=== PATIENT | male | born 1945 | race Caucasian/White ===

== ENCOUNTER → 2023-05-08 15:26 | Outpatient (REF) | payer MEDICARE, SELFPAY ==
[2023-05-10 22:45] LABS: PSA Total 3.5 ng/mL (0.0-4.0)
== END ==
LOC: REG 15:26
PROVIDERS: ATTENDING PHYSICIAN Surgery; FAMILY PHYSICIAN Internal Medicine
DX: R97.20 Elevated prostate specific antigen [PSA] (principal)
CPT/HCPCS: 36415; 84153; 84154

== ENCOUNTER → 2023-06-05 10:12 | Outpatient (REF) | payer MEDICARE, SELFPAY | LOC: RAD 10:12 | PROVIDERS: ATTENDING PHYSICIAN Otolaryngology; FAMILY PHYSICIAN Nurse Practitioner | DX: K21.9 Gastro-esophageal reflux disease without esophagitis (principal); R07.0 Pain in throat | CPT/HCPCS: 74221 ==

== ENCOUNTER 2023-10-24 13:14 | Inpatient (IN) | payer MEDICARE, SELFPAY ==
[2023-10-23] VITALS (7 sets, daily range): BP systolic 115–163; BP diastolic 60–83; BMI 30.5
[2023-10-23 16:17] LABS: % Basophils 0.3 % (0-2); % Eosinophils 0.2 % (0-6); % Immature Granulocytes 0.3 % (0-0.5); % Lymphocytes 7.7 % (20.5-51.1); % Monocytes 6.2 % (1.7-9.3); % Neutrophils 85.3 % (42.2-75.2); Absolute Monocytes 0.8 10^3/uL (0.1-0.6); Absolute Neutrophils 11.3 10^3/uL (1.4-6.5); Hematocrit 45.7 % (39.0-52.0); Hemoglobin 15.9 g/dL (13.0-18.0); Mean Corp Hgb Conc. 34.8 g/dL (33.0-37.0); Mean Corpuscular Volume 89.1 fL (80.0-94.0); Mean Platelet Volume 9.1 fL (7.4-10.4); Nucleated Red Blood Cells % 0 % (-); Platelet Count 311 10^3/uL (130-400); Red Blood Cell Count 5.13 10^6/uL (4.70-6.10); Red Cell Dist. Width 13.7 % (11.5-14.5); White Blood Cell Count 13.2 10^3/uL (4.8-10.8)
--- NOTE | 2023-10-23 16:30 | ED.GENMED ---
History of Present Illness
General
Chief Complaint: Abdominal Pain
Source: patient
Exam Limitations: none
Time Seen by Provider: 10/23/23 15:54
Nursing documentation reviewed up to this point in time: agreed with
History of Present Illness
History of Present Illness:
78 yo male w h/o GERD, takes Omeprazole, BPH with chronic slow stream, presents with RUQ pain, went to due to not feeling well, had neg Covid test, sent here for the pain. Pain started this a.m. RUQ and sometimes radiates across upper abdomen.
Denies fever or chills. Denies nausea or vomiting. Denies diarrhea or constipation. Had a normal bowel movement yesterday. He drinks alcohol occasionally.
Past History
Past History
ED Past Medical History: GERD and Other (BPH)
ED Past Surgical History: Orthopedic and Other (hernia repair, R arm melanoma removed)
Social History
Tobacco: Non-smoker
Alcohol: Occasional
Personal: Single
Living: alone
Employment: Employed
Review of Systems
Review of Systems
Allergies reviewed?: Yes
All Other Systems: ROS reviewed and negative except as documented in HPI and ROS
Constitutional: Denies fever
Respiratory: Denies trouble breathing
Cardiac: Denies chest pain
ABD/GI: Reports abdominal pain and nausea; Denies vomiting, diarrhea, constipated or anorexia
: Reports difficulty voiding (takes a while to void, this is chronic with his BPH, followed by urology); Denies dysuria or frequency
Musculoskeletal: Reports no symptoms
Skin: Reports no symptoms
Neurological: Reports no symptoms
Phy Exam
Physical Exam
Physical Exam:
GENERAL: No acute distress. A&Ox3.
CONSTITUTIONAL: Afebrile.
EYES: clear, conjunctivae normal
ENMT: moist mucus membranes, Pharynx nl
RESPIRATORY: Regular respirations, nonlabored, lungs clear.
CARDIOVASCULAR: Regular rate and rhythm, no murmurs, no rubs.
GI: Soft, tender RUQ, normal BS
MUSCULOSKELETAL: Moves with ease. Well perfused.
SKIN: Warm, dry, pink
PSYCH: Normal mood and affect. Well kept, interactive and appropriate
NEUROLOGIC: Awake, alert and oriented. No focal neurological deficits
Course
Orders/Labs/Results
Orders:
Orders
10/23/23 15:25
ECG [Electrocardiogram (*1)] Urgent
Reason for Study: Abdominal Pain
EKG- Treatment ONCE
10/23/23 16:03
Complete Blood Count/With Diff Urgent
Comprehensive Metabolic Panel Urgent
Lipase Urgent
Troponin I Urgent
10/23/23 16:30
Iohexol [Omnipaque] See Protocol PO NOW STA
10/23/23 16:35
US Abdomen Complete/Upper Urgent
Comment:
Reason For Exam: RUQ pain
10/23/23 16:53
0.9% Sodium Chloride 1000 ml [Nss] 1,000 ml IV BOLUS
10/23/23 16:54
Ketorolac [Toradol] 15 mg IV NOW STA
10/23/23 19:00
Piperacillin/Tazo 3.375 Gram [Zosyn] 3.375 gram in 50 ml IV NOW
10/23/23 19:32
Admit/Transfer Patient As Directed
Co-Sign Provider:
Level of Care: Observation services
Assign to:: Medical/Surgical
Physician / Group: dr dubois
Diagnosis: acute cholecystitis
PRN Pain Medication Management As Directed
May give lesser potent ordered pain med per pt: Yes
preference::
Protocol:: Medication orders for pain may be administered in a
manner that supports deferring to patient preference
when the pt is:
-Requesting an ordered lesser potent pain medication.
Least to most potent pain medications are defined as:
acetaminophen < NSAID < tramadol < opioids (morphine,
oxycodone, hydromorphone).
- Requesting a lesser dose of the same medication IF
ORDERED.
- Requesting a less intrusive route of administration
if both routes are prescribed by the provider (PO <
IV).
10/23/23 19:33
Code Status As Directed
Resuscitation Status: Full Code
10/23/23 20:29
Acetaminophen [Tylenol] 650 mg PO Q4HPRN PRN
HYDROmorphone [Dilaudid] 0.5 mg IV Q2HPRN PRN
Ketorolac [Toradol] 15 mg IV Q6HPRN PRN
Ondansetron Injectable [Zofran] 4 mg IV Q6HPRN PRN
10/23/23 20:29
Activity As Directed
Activity Level: Out of Bed-Early Mobility
Anti-embolism (TRISHA) Hose As Directed
Type: Thigh high
Intake/ Output As Directed
Frequency: Per unit guidelines
Pneumatic Compression Sleeves As Directed
Type: Thigh high
Vital Signs As Directed
Frequency: Per unit guidelines
Rx Incentive Spirometry [RESP] Routine
Frequency: q1h while awake
# of times per hour: 10
DX Deep Vein Thrombosis Video Routine
10/24/23 00:00
Normosol (Mult Electrolytes) [Normosol-R] 1,000 ml IV 80 mls/hr
10/24/23 01:00
Piperacillin/Tazo 3.375 Gram [Zosyn] 3.375 gram in 50 ml IV Q6H
10/24/23 Breakfast
NPO
Allow oral meds: Yes
Allow clear liquids: No
NPO with Ice Chips: No
Abnormal Lab Results
10/23/23
16:03
WBC 13.2 H 10^3/uL
(4.8-10.8)
Absolute Neuts (auto) 11.3 H 10^3/uL
(1.4-6.5)
Absolute Lymphs (auto) 1.0 L 10^3/uL
(1.2-3.4)
Absolute Monos (auto) 0.8 H 10^3/uL
(0.1-0.6)
Neutrophils % 85.3 H %
(42.2-75.2)
Lymphocytes % 7.7 L %
(20.5-51.1)
BUN 24 H mg/dl
(9-20)
Glucose 101 H mg/dl
(70-99)
10/23/23 16:03
10/23/23 16:03
Vital Signs
Initial and Last Documented VS:
Initial Vital Signs
Temp Pulse Resp BP Pulse Ox
98.3 F 76 20 115/82 99
10/23/23 15:22 10/23/23 15:22 10/23/23 15:22 10/23/23 15:22 10/23/23 15:22
Last Documented Vital Signs
Temp Pulse Resp BP Pulse Ox
98.3 F 74 16 140/60 99
10/23/23 15:22 10/23/23 18:44 10/23/23 18:44 10/23/23 18:44 10/23/23 18:44
MDM/Problems Addressed
Differential Diagnosis Includes:
cholecystitis, biliary colic, pancreati
MDM/Problems Addressed:
78 yo male w h/o GERD, takes Omeprazole, BPH with chronic slow stream, presents with RUQ pain, went to due to not feeling well, had neg Covid test, sent here for the pain. Pain started this a.m. RUQ, nausea and sometimes radiates across upper
abdomen. Denies fever or chills. Denies nausea or vomiting. Denies diarrhea or constipation. Had a normal bowel movement yesterday. He drinks alcohol occasionally.
EKG: NSR, sinus arrhythmia, occasional PVCs
CBC: WBC 13.3
CMP: No clinically significant abnormality EKG: Sinus rhythm with sinus arrhythmia occasional PVC.
Lipase normal
Troponin normal
6:30 PM
Ultrasound upper abdomen radiology report read:IMPRESSION:
1. Cholelithiasis/sludge, gallbladder distention, gallbladder wall thickening, and suspected trace pericholecystic fluid. Findings raise suspicion for acute cholecystitis in the appropriate clinical setting.
2. No bile duct dilatation.
3. 4 mm gallbladder polyp for which no further imaging follow-up is required.
Consulted Dr. Dubois General surgery.
He will admit to his service
House Provider notified of admission.
In to re evaluate, pt remains comfortable
*Critical Care Note
Total Time (30-74mins, 75-104mins- exclusive of procedures): Not Applicable
ED Attending Note
-
Portions of this chart may have been created with voice recognition software.� Occasional wrong word or��sound alike� substitutions may have occurred due to the inherent limitations of voice recognition software.
Discharge Plan
Departure
Patient Disposition: Admit
Date of Disposition: 10/23/23
Time of Disposition: 19:00
Admit to: Med/Surg
Presentation/result/management discussed w/ accepting /: Silvino
Condition: Fair
Discharge Problem:
Acute cholecystitis
Interventions
Interventions:
*Risk Screen - Suicide Last Done: 10/23/23 15:22
*General Assessment Last Done: 10/23/23 15:22
*Neglect/Abuse Screening Last Done: 10/23/23 15:22
ED- Fall Risk Assessment Last Done: 10/23/23 20:22
*ED COVID-19 Vaccine History Last Done: 10/23/23 15:50
*Nursing Disposition Last Done: 10/23/23 20:22
OL-Piosys-Mtgytmpqlm Assessment Last Done: 10/23/23 15:50
Discharge Date and Time
Discharge Date/Time: 10/23/23 20:27
[2023-10-23 16:31] LABS: ALT (SGPT) 18 U/L (0-50); AST (SGOT) 28 U/L (17-59); Albumin 4.2 g/dl (3.5-5.0); Alkaline Phosphatase 85 U/L (38-126); Blood Urea Nitrogen 24 mg/dl (9-20); Calcium 9.2 mg/dl (8.4-10.2); Carbon Dioxide 28 mmol/L (22-30); Chloride 106 mmol/L (98-107); Glucose 101 mg/dl (70-99); Lipase 58 U/L (23-300); Potassium 3.9 mmol/L (3.5-5.1); Sodium 139 mmol/L (135-145); Total Bilirubin 0.8 mg/dl (0.2-1.3); Total Protein 6.5 g/dl (6.3-8.2); eGFR > 60.00
[2023-10-23] MEDS: OMNIPAQUE 50 ML PO (16:33)
[2023-10-23 16:40] LABS: Troponin I < 0.012 ng/ml
[2023-10-23] MEDS: NSS 1000 IV (17:06)
[2023-10-23] MEDS: TORADOL 15 MG IV (17:06)
[2023-10-23] MEDS: ZOSYN 50 IV (19:11)
--- NOTE | 2023-10-23 20:14 | HPS.HSE ---
Addendum entered and electronically signed by AURE Anna 10/25/23 01:27:
correction- dog name is Low
Addendum entered and electronically signed by Crow Srivastava MD 10/24/23 09:52:
H/o intussusception and procedure was documented in error, please ignore
Addendum entered and electronically signed by Crow Srivastava MD 10/24/23 09:24:
Patient seen and examined.
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 Mr. Spencer states that his symptoms began yesterday morning after a meal of
[employer] the evening before. He describes generalized and upper abdominal discomfort which is localized to his RUQ. He denies any back pain. Associated nausea, but no episodes of vomiting. No fevers or chills. No fluctuations in GI function.
Denies any jaundice, pale stools, or tea colored urine. Upon further prompting he does report more mild RUQ abdominal pain over this past several months. Currently he states that his symptoms are improved, but still present. No family history of
gallbladder disease.
Gen:NAD
Abd: soft, tender to palpation in RUQ, positive Benitez's sign, ND, non-peritoneal, prior RLQ paramedial incision well healed
Workup thus far including labs and imaging were reviewed.
Patient is a 78 yo M p/w acute cholecystitis
The natural history and pathophysiology of cholecystitis briefly reviewed. Workup thus far including labs and imaging was reviewed. Options for management were reviewed. Given his persistent level of pain and discomfort recommend cholecystectomy.
Plan for a laparoscopic cholecystectomy with possible cholangiogram. The procedure itself, as well as the risks, benefits, and alternatives was discussed. Specifically, we discussed the risks of bleeding, infection, injury to surrounding
structures (bowel, bile ducts), CBD injury, need for open procedure. Typical postprocedural recovery was discussed. All questions answered. Consent signed.
-- Laparoscopic cholecystectomy with possible cholangiogram
-- NPO, IVF
-- Antibiotics: Zosyn
-- Pain control: Tylenol and IV Dilaudid as needed
-- GI: PPI
Original Note:
Family Physician
-
Family Physician: AURE Sandra
Chief Complaint
-
RQ abd pain, feeling 'off' gissell
History of Present Illness
78 yo male w h/o GERD, takes Omeprazole, BPH with chronic slow stream, presents with RUQ pain, went to UC due to not feeling well, had neg Covid test, sent here for the pain. Pain started this a.m. RUQ and sometimes radiates across upper abdomen.
Denies fever or chills. Admits to nausea but no vomiting. Denies diarrhea or constipation. Had a normal bowel movement yesterday. Anorexia today. He drinks alcohol occasionally.
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 Then later on had [employer]. Today he woke up feeling 'off' with head pressure and nausea feeling.
Abd US:IMPRESSION:
1. Cholelithiasis/sludge, gallbladder distention, gallbladder wall thickening, and suspected trace pericholecystic fluid. Findings raise suspicion for acute cholecystitis in the appropriate clinical setting.
2. No bile duct dilatation.
3. 4 mm gallbladder polyp for which no further imaging follow-up is required.
WBC 13.3 neutrophils 11.3
Received toradol in ED and is feeling improved. In fact shocked that he had to stay overnight,
Medical History
Past Medical History
Past Medical History: Reports Other (BPH, OA, GERD)
Past Surgical History: Reports Orthopedic (Left TSA 08/22) and Other (melanoma removed right forearm with graft 2007)
Social History
Tobacco: Non-smoker
Alcohol: Occasional (one drink only )
Drug: None
Personal:
Living: Alone (with [place])
Employment: Employed ([employer])
Family History
Family History: Not pertinent
Allergies / Home Medications
Allergies reflects when Allergies were last updated in [facility].
Home Medications with original date entered in [facility]
Allergy/Medication List:
Allergies
Allergy/AdvReac Type Severity Reaction Status Date / Time
No Known Allergies Allergy Verified 10/23/23 15:22
Home Medications
omeprazole 20 mg capsule,delayed release 20 mg PO DAILY
Prevagen 1 tab PO DAILY 10/23/23
ascorbic acid (vitamin C) 500 mg tablet (Vitamin C) 500 mg PO DAILYPRN PRN supplement 10/23/23
ferrous sulfate 325 mg (65 mg iron) tablet 325 mg PO DAILYPRN PRN supplement 10/23/23
glucosamine sulf dipot chlr,msm,chond 550 mg-C 30 mg-glynn 1 mg capsule (Glucosamine Chondroitin) 1 cap PO DAILY 10/23/23
lmcutohq-kx-muxga 300 mcg-K 60 mcg-lycop 600 mcg-lutein 300 mcg tablet (Centrum Silver Men) 1 tab PO DAILY 10/23/23
Review of Systems
-
History Source: Patient
A 12 point ROS was completed and negative except as noted: Yes
Constitutional: Reports No Symptoms
EENT: Reports No Symptoms
Respiratory: Reports No Symptoms
Cardiac: Reports No Symptoms
Abdomen/GI: Reports Abdominal Pain (RUQ discomfort) and Nausea
: Reports No Symptoms
Musculoskeletal: Reports No Symptoms
Skin: Reports No Symptoms
Neurological: Reports No Symptoms
Endocrine: Reports No Symptoms
Hematologic/Lymphatic: Reports No Symptoms
Psych: Reports No Symptoms
Physical Exam
Vital Signs
Vital Signs
Temp Pulse Resp BP Pulse Ox
98.3 F 74 16 140/60 99
10/23/23 15:22 10/23/23 18:44 10/23/23 18:44 10/23/23 18:44 10/23/23 18:44
Physical Exam
General: Well Developed, Well Nourished, No Apparent Distress, Comfortable and Conversant
HEENT: NormoCephalic, Anicteric and Moist mucous membranes
Respiratory: Clear and Non Labored Respirations
Cardiac: S1/S2 and Regular Rhythm
Breast: Deferred by me
GI: Soft, Normal Bowel Sounds and Tender (RUQ with palpation)
Rectal: Deferred by Provider
Genito-urinary: Deferred by me
Musculoskeletal: No Clubbing and No Cyanosis
Skin: Warm and Dry
Neuro: Awake, Alert, Oriented and AO x 3
Hematologic/Lymphatic: No Lymphadenopathy
Psych: Calm
Laboratory Results
-
10/23/23 16:03
10/23/23 16:03
Laboratory Results
Total Bilirubin 0.8 mg/dl (0.2-1.3) 10/23/23 16:03
AST 28 U/L (17-59) 10/23/23 16:03
ALT 18 U/L (0-50) 10/23/23 16:03
Alkaline Phosphatase 85 U/L (38-126) 10/23/23 16:03
Troponin I < 0.012 ng/ml 10/23/23 16:03
Lipase 58 U/L (23-300) 10/23/23 16:03
Data Reviewed
-
Ultrasound: Report Reviewed by me and Discussed with Physician
Medical Tests (Nuc Med, Echo, EKG etc): Report Reviewed by me
Lab Data: Discussed with Physician and Discussed with Patient
Impression/Plan
-
IMPRESSION:
78 yo male present to ED with One day complaint of feeling unwell and some RUQ discomfort. Abd US consistant with cholecystitis
PLAN:
Admit to service of DR Srivastava
Med surg obs
#acute cholecystitis
-NPO after mid--> clears ok until then
-IVF at mid for hydration
-Pain control: tylenol, toradol, diladud
-Zofran prn
- cont zosyn q6
- WBC 13.3 neutrophils 11.3---> repeat in am
#GERD
-protonix (in place of omeprazole)
DVT proph: scd
Full code
--- NOTE | 2023-10-23 21:21 | TRANSFER ---
Pt arrived from ED at 2030 w dx of acute cholecystitis, c/o 04/12 pain to RUQ. VSS, skin intact. Pt notified of procedure for tomorrow. Call pinzon within reach, bed in lowest position. Safety maintained.
[2023-10-23] MEDS: NORMOSOL-R 1000 IV (23:25)
--- NOTE | 2023-10-23 23:50 | PTCARENOTE ---
Pt asked for phone plug paster, there were no compatible chargers on [facility]. Pt asked if he could go to his car to obtain plug paster, I told him that he's not supposed to leave the facility. I offered to retrieve his plug paster for him. Pt gave me permission
to go with security to witness removing just the phone plug paster from pt's car and put it at the bedside w patient's personal belongings.
[2023-10-24] VITALS (10 sets, daily range): BP systolic 125–147; BP diastolic 31–73
[2023-10-24] MEDS: ZOSYN 50 IV ×4 (01:00→20:13)
[2023-10-24 07:12] LABS: % Basophils 0.3 % (0-2); % Eosinophils 0.6 % (0-6); % Immature Granulocytes 0.3 % (0-0.5); % Monocytes 10.6 % (1.7-9.3); % Neutrophils 70.2 % (42.2-75.2); Absolute Eosinophils 0.1 10^3/uL (0-0.7); Absolute Lymphocytes 1.8 10^3/uL (1.2-3.4); Absolute Neutrophils 6.9 10^3/uL (1.4-6.5); Hematocrit 38.8 % (39.0-52.0); Hemoglobin 13.4 g/dL (13.0-18.0); Mean Corp Hgb Conc. 34.5 g/dL (33.0-37.0); Mean Corpuscular Hgb 30.7 pg (27.0-31.0); Mean Platelet Volume 9.6 fL (7.4-10.4); Nucleated Red Blood Cells % 0 % (-); Platelet Count 262 10^3/uL (130-400); Red Blood Cell Count 4.36 10^6/uL (4.70-6.10); Red Cell Dist. Width 13.7 % (11.5-14.5); White Blood Cell Count 9.8 10^3/uL (4.8-10.8)
[2023-10-24 07:35] LABS: Blood Urea Nitrogen 19 mg/dl (9-20); Calcium 8.4 mg/dl (8.4-10.2); Carbon Dioxide 24 mmol/L (22-30); Chloride 107 mmol/L (98-107); Estimated Creatinine Clearance 67 ml/min; Glucose 95 mg/dl (70-99); Potassium 3.8 mmol/L (3.5-5.1); Sodium 137 mmol/L (135-145); eGFR > 60.00
[2023-10-24] MEDS: PROTONIX 20 MG PO (08:42)
--- NOTE | 2023-10-24 09:25 | CON.GS ---
Consultation
-
Date/Time Consultation Performed: 07:00 am, October 24, 2023
Reason for Consultation: Abdominal Pain
Medical History
-
Chief Complaint: Abdominal Pain
History of Present Illness:
Mr. Spencer is a 78 M with a PMHx of GERD controlled on Omeprazole who is presenting with RUQ pain. He states the pain started yesterday morning after he had eaten 2 fast food meals and had a jody the night before. At the time the pain was
described as crampy, but became more tender and localized as the day went on. He was seen at Urgent Care, who advised he visit the ED. The patient notes associated nausea, but no vomiting. He also denies fevers, chills, diarrhea and constipation.
Past Medical History
Past Medical History: Reviewed & Noncontributory and GERD (controlled and asymptomatic on Omeprazole)
Past Surgical History: Reviewed & Noncontributory
Social History
Tobacco: Non-Smoker
Alcohol: Occasional
Drug: None
Personal: Single ()
Employment: Retired
Family History
Family History: Reviewed & Not Pertinent
Allergies / Home Medications
Allergy/AdvReac Type Severity Reaction Status Date / Time
No Known Allergies Allergy Verified 10/23/23 15:22
�Medication �Instructions �Recorded �Confirmed �Type
omeprazole 20 mg capsule,delayed 20 mg PO DAILYPRN PRN GERD 08/16/21 10/23/23 History
release
Prevagen 1 tab PO DAILY Supplement 10/23/23 10/23/23 History
ascorbic acid (vitamin C) 500 mg 500 mg PO DAILYPRN PRN supplement 10/23/23 10/23/23 History
tablet (Vitamin C)
ferrous sulfate 325 mg (65 mg 325 mg PO DAILYPRN PRN supplement 10/23/23 10/23/23 History
iron) tablet
glucosamine sulf dipot 1 cap PO DAILY Supplement 10/23/23 10/23/23 History
chlr,msm,chond 550 mg-C 30 mg-glynn
1 mg capsule (Glucosamine
Chondroitin)
lajlexoi-op-lecxw 300 mcg-K 60 1 tab PO DAILY Supplement 10/23/23 10/23/23 History
mcg-lycop 600 mcg-lutein 300 mcg
tablet (Centrum Silver Men)
Review of Systems
-
History Source: Patient
All other systems: Negative unless noted
A 10 point review of systems was completed, and was negative except as per HPI.
Physical Exam
Vital Signs
Temp Pulse Resp BP Pulse Ox
98.7 F 57 16 125/60 94
10/24/23 07:04 10/24/23 07:04 10/24/23 07:04 10/24/23 07:04 10/24/23 07:04
10/23/23 10/24/23 10/25/23
06:59 06:59 06:59
Actual Weight 83 kg
Body Mass Index (BMI) 30.5
Lab Results
10/24/23 05:59
10/24/23 05:59
WBC 9.8 10^3/uL (4.8-10.8) 10/24/23 05:59
Hgb 13.4 g/dL (13.0-18.0) 10/24/23 05:59
Hct 38.8 % (39.0-52.0) L 10/24/23 05:59
Plt Count 262 10^3/uL (130-400) 10/24/23 05:59
Abs Immat Gran (auto) 0.0 10^3/uL (0-0.05) 10/24/23 05:59
Neutrophils % 70.2 % (42.2-75.2) 10/24/23 05:59
Physical Exam
General: Well Developed, Well Nourished, No Apparent Distress and Comfortable
HEENT: Anicteric
Respiratory: Non Labored Respirations
GI: Tender (Moderate tenderness in the RUQ, soft and nontender to palpation in all other quadrants. No guarding, no rebound, no rigidity. )
Skin: Warm and Dry
Neuro: Awake and Alert
Psych: Calm
Data Reviewed
-
Ultrasound: Report Reviewed by me (Cholelithiasis/sludge, gallbladder distention, gallbladder wall thickening, and suspected trace pericholecystic fluid. Findings raise suspicion for acute cholecystitis in the appropriate clinical setting.) and
Discussed with Patient
Labs: Labs Reviewed by me and Discussed with Patient
Assessment / Plan
-
Mr. Spencer is a 78M with a noncontributory PMHx and no PSHx who is presenting with RUQ pain for 1 day and nausea following a fatty meal. On physical exam he was moderately tender in the RUQ, with the rest of his exam being grossly normal. His
initial white count was 13.2 yesterday, and has normalized to 9.8 today, likely as a result of IV abx. Ultrasound performed yesterday showed findings consistent with acute cholecystitis including stones, sludge, gallbladder distension, wall
thickening and pericholecystic fluid.
1. Acute Cholecystitis with Cholelithiasis
- NPO
- Pain Control
- Continue IV ABx
- Urgent Lap Cholecystectomy to be performed today
--- NOTE | 2023-10-24 10:00 | W.SUR.PREOP ---
Pre-Operative Surgical Note
-
I have examined this patient prior to the performance of the scheduled procedure.
The patient's condition is unchanged from the time of the current History and
Physical and the patient is able to undergo the scheduled procedure.
--- NOTE | 2023-10-24 10:10 | CM ---
Addendum entered by Salomon Hammond 10/24/23 14:58:
Pt's admission status changed from OBS to inpatient. IMM reviewed, placed on chart, pt has a copy.
Original Note:
CM following re: discharge planning.
Reviewed pt's chart, met with pt.
Pt is a 78 year old male, admitted with OBS status and primary dx of Acute cholecystitis. OBS status explained to the pt, pt expressed understanding. STINSON letter signed, placed on chart, pt has a copy.
Pt reports he lives alone in a 2SH, 3 steps to enter and has a dog whom pt described is 'the only best friend'. Pt reports he used to live with his spouse and she last year and yesterday was 1 year. Emotional support offered and
provided. Pt reports he has no children and no immediate family around. pt stated he does not feel comfortable to have another relationship and per pt 'having friends is the best option'. Pt described himself as independent in all areas [employer], drives,
works.
Per chart review, urgent Lap Cholecystectomy to be performed today. Pt is awre.
PCP: Breanna Sandra.
Pharmacy: [facility]
D/C plan: home with anticipated no needs.
CM will follow with discharge plan updates as hospitalization progresses
--- NOTE | 2023-10-24 13:11 | W.IMMPOSTOP ---
Addendum entered and electronically signed by Crow Dubois MD 10/25/23 07:31:
[facility]#[id number]
Original Note:
Surgical Immed Post Op Note
-
Primary Surgeon: Silvino
Assisting Surgeon: JOSÉ Mayorga
Pre-op Diagnosis: Acute cholecystitis
Post-op Diagnosis: Acute cholecystitis
Procedure Performed: Laparoscopic cholecystectomy with IOC and LCBDE
Anesthesia Type: General
Specimen / Cultures:
1. Gallbladder
Estimated Blood Loss: 11 cc
Complications: None
Operative Findings:
1. Acutely inflamed and edematous GB, fatty infundibulum, thick purulent appearing bile
2. Critical view of safety
3. IOC with no empty into duodenum, Glucagon admin, wire advanced into duodenum, emptying into duodenum on completion cholangiogram
-- Clears
-- Abx: Zosyn, treat with 4 days Augmentin on DC
-- Repeat CMP in AM, GI consult if elevated
--- NOTE | 2023-10-24 15:12 | PTCARENOTE ---
Received patient from PACU around 1415 via bed in stable condition. Patient drowsy but arousable. Denies pain at this time. VS stable. Would continue to monitor.
[2023-10-24] MEDS: DILAUDID 0.5 MG IV (18:13)
[2023-10-24] MEDS: NORMOSOL-R 1000 IV (18:13)
[2023-10-24] MEDS: LOVENOX 40 MG SC (18:27)
[2023-10-25] MEDS: ZOSYN 50 IV ×4 (02:20→21:00)
[2023-10-25 03:19] VITALS: BP 138/76
[2023-10-25] MEDS: NORMOSOL-R 1000 IV (04:59)
[2023-10-25 06:44] LABS: Hematocrit 39.6 % (39.0-52.0); Hemoglobin 14.1 g/dL (13.0-18.0); Mean Corp Hgb Conc. 35.6 g/dL (33.0-37.0); Mean Corpuscular Hgb 31.7 pg (27.0-31.0); Mean Platelet Volume 9.7 fL (7.4-10.4); Platelet Count 246 10^3/uL (130-400); Red Blood Cell Count 4.45 10^6/uL (4.70-6.10); Red Cell Dist. Width 13.8 % (11.5-14.5); White Blood Cell Count 11.2 10^3/uL (4.8-10.8)
[2023-10-25 07:02] LABS: ALT (SGPT) 120 U/L (0-50); AST (SGOT) 105 U/L (17-59); Albumin 3.2 g/dl (3.5-5.0); Alkaline Phosphatase 102 U/L (38-126); Blood Urea Nitrogen 16 mg/dl (9-20); Calcium 8.6 mg/dl (8.4-10.2); Carbon Dioxide 24 mmol/L (22-30); Chloride 104 mmol/L (98-107); Estimated Creatinine Clearance 67 ml/min; Glucose 104 mg/dl (70-99); Potassium 3.9 mmol/L (3.5-5.1); Sodium 136 mmol/L (135-145); Total Bilirubin 1.2 mg/dl (0.2-1.3); Total Protein 5.4 g/dl (6.3-8.2); eGFR > 60.00
[2023-10-25 07:09] VITALS: BP 143/62
[2023-10-25] MEDS: PROTONIX 20 MG PO (08:51)
--- NOTE | 2023-10-25 10:49 | W.PN.GS2 ---
Addendum entered and electronically signed by Crow Dubois MD 10/25/23 14:07:
Patient seen and examined.
No major complaints. Pain well-controlled. Denies nausea or vomiting. No fevers.
Gen: NAD
Abd: soft, appropriately tender, ND, non-peritoneal incisions c/d/i - no erythema, ecchymosis or drainage
Patient is a 78M who is POD#1 s/p lap cholecystectomy w/ IOC and LCBDE for acute cholecystitis.
Recovering well. No major postoperative concerns. Plan to monitor in hospital for an additional 24 hours for IV antibiotics and repeat labs in the a.m.
- LFD
- HLIV
- Pain control: Tylenol, Toradol, Oxycodone
- Continue IV Zosyn. Switch to PO Augmentin after discharge.
- DVT: Lovenox
- GI: home PPI
- F/u WBC and CMP in the AM
- If transaminases continue to be elevated, consult GI
Original Note:
Today's Communication / Plan
-
Patient pain improved, tolerating recently advanced low-fat diet. Continue IV ABx, will continue to monitor WBC, Liver Chemistries.
Assessment / Plan
-
Mr. Spencer is a 78M who is POD#1 s/p lap cholecystectomy w/ IOC and LCBDE for acute cholecystitis.
He is tolerating his low fat diet well and is clinically improving. His WBC is mildly elevated and likely represents a post-operative leukocytosis. In addition, he has mildly elevated transaminases which is also likely post-procedural, but will
continue to trend these values in the setting of his improving clinical condition.
- Continue IV Zosyn. Switch to PO Augmentin after discharge.
- F/u WBC in the AM
- F/u CMP in the AM
- If transaminases continue to be elevated, consult GI
Subjective Data
-
Date of Service: October 25, 2023
Mr. Spencer is a 78 M who is POD#1 s/p laparoscopic cholecystectomy with IOC and LCBDE for acute cholecystitis. Pt reports that he is feeling well this morning and that his pain has improved. He was started on a low-fat diet this morning and denies
any postprandial pain, nausea, vomiting, or diarrhea after eating apple sauce, a bagel, and sips of tea. He notes that he has been afebrile, OOB, voiding, and passing gas.
Objective Data
-
Intake and Output
10/24/23 10/25/23 10/26/23
06:59 06:59 06:59
Intake Total 790 / 790 3160 / 3160
Output Total 300 / 300 925 / 925
Balance 490 / 490 2235 / 2235
Intake:
Oral fluids 240 / 240 870 / 870
IV fluids (Total) 500 / 500 2089 / 2089
Normosol 650 / 650
IV piggybacks 50 / 50 200 / 200
Output:
Urine, Voided 300 / 300 925 / 925
Vital Signs
Temp Pulse Resp BP Pulse Ox
99 F 54 15 143/62 95
10/25/23 07:09 10/25/23 07:09 10/25/23 07:09 10/25/23 07:09 10/25/23 07:09
Lab Results
10/25/23 05:50
10/25/23 05:50
Calcium 8.6 mg/dl (8.4-10.2) 10/25/23 05:50
Total Bilirubin 1.2 mg/dl (0.2-1.3) 10/25/23 05:50
AST 105 U/L (17-59) H 10/25/23 05:50
ALT 120 U/L (0-50) H 10/25/23 05:50
Alkaline Phosphatase 102 U/L (38-126) 10/25/23 05:50
Total Protein 5.4 g/dl (6.3-8.2) L 10/25/23 05:50
Albumin 3.2 g/dl (3.5-5.0) L 10/25/23 05:50
Physical Exam
-
General: Pt is comfortably sitting in his bedside chair and using his incentive spirometer. Afebrile, vital signs stable. No acute distress.
Respiratory: No increased work of breathing.
Abdomen: Pt is mildly tender in the right upper quadrant; rest of the abdomen is soft, nondistended, and nontender to palpation with no guarding, rebound, or rigidity.
Skin: Surgical incisions are clean, dry, and intact, with no surrounding erythema or ecchymosis.
Neuro: AOx3
Psych: Calm, cooperative.
[2023-10-25 11:34] VITALS: BP 117/46
[2023-10-25] MEDS: TORADOL IV (14:51)
[2023-10-25] MEDS: ROXICODONE PO (15:02)
[2023-10-25 15:09] VITALS: BP 135/56
[2023-10-25] MEDS: TORADOL 10 MG IV (16:40)
[2023-10-25] MEDS: LOVENOX 40 MG SC (16:41)
[2023-10-25] MEDS: ROXICODONE 5 MG PO (21:47)
[2023-10-25 23:25] VITALS: BP 136/60
[2023-10-26] MEDS: ZOSYN 50 IV ×2 (02:42→07:58)
[2023-10-26 06:50] LABS: % Basophils 0.3 % (0-2); % Eosinophils 2.5 % (0-6); % Immature Granulocytes 0.3 % (0-0.5); % Lymphocytes 16.6 % (20.5-51.1); % Monocytes 8.2 % (1.7-9.3); % Neutrophils 72.1 % (42.2-75.2); Absolute Eosinophils 0.2 10^3/uL (0-0.7); Absolute Lymphocytes 1.2 10^3/uL (1.2-3.4); Absolute Monocytes 0.6 10^3/uL (0.1-0.6); Absolute Neutrophils 5.3 10^3/uL (1.4-6.5); Hematocrit 36.3 % (39.0-52.0); Hemoglobin 12.6 g/dL (13.0-18.0); Mean Corp Hgb Conc. 34.7 g/dL (33.0-37.0); Mean Corpuscular Hgb 31.1 pg (27.0-31.0); Mean Corpuscular Volume 89.6 fL (80.0-94.0); Mean Platelet Volume 9.7 fL (7.4-10.4); Nucleated Red Blood Cells % 0 % (-); Platelet Count 243 10^3/uL (130-400); Red Blood Cell Count 4.05 10^6/uL (4.70-6.10); Red Cell Dist. Width 13.8 % (11.5-14.5); White Blood Cell Count 7.3 10^3/uL (4.8-10.8)
[2023-10-26 07:00] VITALS: BP 166/73
[2023-10-26 07:23] LABS: ALT (SGPT) 93 U/L (0-50); AST (SGOT) 70 U/L (17-59); Alkaline Phosphatase 97 U/L (38-126); Blood Urea Nitrogen 23 mg/dl (9-20); Calcium 8.5 mg/dl (8.4-10.2); Carbon Dioxide 26 mmol/L (22-30); Chloride 104 mmol/L (98-107); Estimated Creatinine Clearance 55 ml/min; Glucose 90 mg/dl (70-99); Potassium 3.9 mmol/L (3.5-5.1); Sodium 135 mmol/L (135-145); Total Bilirubin 0.9 mg/dl (0.2-1.3); eGFR > 60.00
[2023-10-26 07:33] LABS: Total Protein 5.3 g/dl (6.3-8.2)
[2023-10-26] MEDS: PROTONIX 20 MG PO (07:58)
--- NOTE | 2023-10-26 08:10 | W.PN.GS2 ---
Addendum entered and electronically signed by Crow Dubois MD 10/27/23 09:17:
Anemia, multifactorial due to acute blood loss and hemodilution
Original Note:
Today's Communication / Plan
-
- DC today
Assessment / Plan
-
Mr. Spencer is a 78M who is POD#2 s/p lap cholecystectomy w/ IOC and LCBDE for acute cholecystitis.
AVSS
Labs trending down
No post-operative concerns
- LFD
- Pain control: Tylenol, Toradol, Oxycodone
- Continue IV Zosyn. Switch to PO Augmentin after discharge.
- DVT: Lovenox
- GI: PPI
- DC today
Subjective Data
-
Date of Service: October 26, 2023
No complaints. Feels improved from yesterday. Pain well-controlled. No nausea or vomiting. No fevers or chills.
Objective Data
-
Intake and Output
10/25/23 10/26/23 10/27/23
06:59 06:59 06:59
Intake Total 3160 / 3160 2640 / 2640
Output Total 925 / 925 800 / 800
Balance 2235 / 2235 1840 / 1840
Intake:
Oral fluids 870 / 870 2040 / 2040
IV fluids (Total) 2090 / 2090 400 / 400
Normosol 650 / 650
IV piggybacks 200 / 200 200 / 200
Output:
Urine, Voided 925 / 925 800 / 800
Other:
Number of approximated MODERATE 2
amounts of urine
Vital Signs
Temp Pulse Resp BP Pulse Ox
98.9 F 62 14 166/73 95
10/26/23 07:00 10/26/23 07:00 10/26/23 07:00 10/26/23 07:00 10/26/23 07:00
Lab Results
10/26/23 05:22
10/26/23 05:22
Calcium 8.5 mg/dl (8.4-10.2) 10/26/23 05:22
Total Bilirubin 0.9 mg/dl (0.2-1.3) 10/26/23 05:22
AST 70 U/L (17-59) H 10/26/23 05:22
ALT 93 U/L (0-50) H 10/26/23 05:22
Alkaline Phosphatase 97 U/L (38-126) 10/26/23 05:22
Total Protein 5.3 g/dl (6.3-8.2) L 10/26/23 05:22
Albumin 3.0 g/dl (3.5-5.0) L 10/26/23 05:22
Physical Exam
-
Gen: NAD
Abd: soft, mild tenderness, ND, non-peritoneal, incisions c/d/i - no erythema, ecchymosis or drainage
--- NOTE | 2023-10-26 08:13 | W.DS.TRANS ---
DC Summary - Guest Relations Coordinator
-
Discharge Instructions:
Discharge Diagnosis/Procedures Laparoscopic cholecystectomy with intraoperative
cholangiogram and common bile duct exploration
Diet Low Fat,Regular
Additional Diets If issues with bloating or diarrhea follow a low
-fat diet
Activity No strenuous activity
Additional Activity No heavy lifting (>20 lbs) or strenuous
activities for 2 to 3 weeks postoperatively
Driving Restrictions No driving if too sore or taking narcotics
Bathing Restrictions OK to Shower
Wound Care Keep incisions clean and dry. Glue will flake
off in 2 to 3 weeks. Stitches will dissolve.
Use ice to the abdomen to reduce any bruising or
swelling.
Instructions:
Stand-Alone Forms:
Changes to Home Medications: Yes
Discharge Medications:
DC Medications w/original date entered in [facility]
omeprazole 20 mg capsule,delayed release 20 mg PO DAILYPRN PRN GERD 08/16/21
Prevagen 1 tab PO DAILY Supplement 10/23/23
ascorbic acid (vitamin C) 500 mg tablet (Vitamin C) 500 mg PO DAILYPRN PRN supplement 10/23/23
ferrous sulfate 325 mg (65 mg iron) tablet 325 mg PO DAILYPRN PRN supplement 10/23/23
glucosamine sulf dipot chlr,msm,chond 550 mg-C 30 mg-glynn 1 mg capsule (Glucosamine Chondroitin) 1 cap PO DAILY Supplement 10/23/23
cdlsirzl-is-xozmh 300 mcg-K 60 mcg-lycop 600 mcg-lutein 300 mcg tablet (Centrum Silver Men) 1 tab PO DAILY Supplement 10/23/23
acetaminophen 325 mg tablet 650 mg (2 x 325 mg) PO Q4HPRN PRN mild pain #1 tab 10/24/23
amoxicillin 875 mg-potassium clavulanate 125 mg tablet 1 tab PO Q12 antibiotic 4 days #8 tabs 10/24/23
ibuprofen 200 mg tablet 400 - 600 mg (2 - 3 x 200 mg) PO Q6HPRN PRN moderate pain #1 tab 10/24/23
oxycodone 5 mg tablet 5 mg PO Q4HPRN PRN breakthrough/severe pain #10 tabs 10/24/23
Home Medication Changes
Pending Results: No
[2023-10-26] MEDS: PREVNAR 20 0.5 ML IM (09:16)
--- NOTE | 2023-10-26 10:43 | CM ---
Met with patient at bedside; patient reported that he is in the process of arranging his ride home with his friends
[facility] IMM benefit explained; form signed @ 1040
Plan: discharge to home today; no services needed
--- NOTE | 2023-10-26 13:50 | PN.CDI ---
CDI
- -
CDI:
Physician Documentation Request
Admit Date: 10/24/23 13:14
Dear Doctor Silvino,
Clinical Indicators:
Patient admitted with acute cholecystitis; s/p Lap Cholecystectomy 10/23.
IVF given: NSS 1 L bolus; Normosol 1 L + maintenance.
Anesthesia Report, EBL 11ml
Hgb/Hct Trend:
10/23/23 10/24/23 10/25/23
16:03 05:59 05:50
Hgb 15.9 13.4 14.1
Hct 45.7 38.8 L 39.6
10/26/23
05:22
Hgb 12.6 L
Hct 36.3 L
Based on the above, could you clarify in the progress notes, the appropriate diagnosis, if significant, that supports the above abnormalities and additional evaluation, monitoring and/or treatment rendered:
Anemia, multifactorial due to acute blood loss and hemodilution
Anemia due to hemodilution only
Abnormal lab value, clinically insignificant
Other, please specify
Use of terms such as suspected, likely, concern for, or probable (associated with a specific diagnosis that is being evaluated, monitored, or treated as if it exists) are acceptable and can be coded in the inpatient setting, when documented at the
time of discharge.
Thank you,
Fabiola De La Vega RN BSN
CDI Specialist
available via tiger text
Please use your independent medical judgment in providing your response.
[2023-10-26] MEDS: ZOSYN IV (14:31)
[2023-10-26 14:34] VITALS: BP 152/68
== END 2023-10-26 14:37 | disposition home or self-care (01) | DRG 418 ==
LOC: 2 SOUTH 13:14
PROVIDERS: Emergency Medicine; Nurse Practitioner Family; ADMITTING PHYSICIAN Surgery; EMERGENCY PHYSICIAN Student in an Organized Health Care Education/Training Program; FAMILY PHYSICIAN Nurse Practitioner
PROC: BF101ZZ Fluoroscopy of Bile Ducts using Low Osmolar Contrast (ICD-10-PCS; 2023-10-24)
PROC: 0FT44ZZ Resection of Gallbladder, Percutaneous Endoscopic Approach (ICD-10-PCS; 2023-10-24)
DX: K81.0 Acute cholecystitis (principal); D62 Acute posthemorrhagic anemia; K21.9 Gastro-esophageal reflux disease without esophagitis; K76.0 Fatty (change of) liver, not elsewhere classified; N40.0 Benign prostatic hyperplasia without lower urinary tract symptoms; Z79.899 Other long term (current) drug therapy; N40.1 Benign prostatic hyperplasia with lower urinary tract symptoms; R39.12 Poor urinary stream
CPT/HCPCS: 88304; 74300; 76000; 76700; 80048; 80053; 83690; 84484; 85025; 85027; 90677; 93005; 96361; 96374; 96375; 99285; C1769; G0009; J1610

== ENCOUNTER → 2024-07-29 12:13 | Outpatient (REF) | payer MEDICARE, SELFPAY ==
[2024-07-29 13:30] LABS: % Basophils 0.6 % (0-2); % Eosinophils 1.4 % (0-6); % Immature Granulocytes 0.4 % (0-0.5); % Lymphocytes 20.4 % (20.5-51.1); % Monocytes 6.8 % (1.7-9.3); % Neutrophils 70.4 % (42.2-75.2); Absolute Eosinophils 0.1 10^3/uL (0-0.7); Absolute Lymphocytes 1.5 10^3/uL (1.2-3.4); Absolute Monocytes 0.5 10^3/uL (0.1-0.6); Absolute Neutrophils 5.1 10^3/uL (1.4-6.5); Hematocrit 45.8 % (39.0-52.0); Hemoglobin 15.7 g/dL (13.0-18.0); Mean Corp Hgb Conc. 34.3 g/dL (33.0-37.0); Mean Corpuscular Hgb 31.4 pg (27.0-31.0); Mean Corpuscular Volume 91.6 fL (80.0-94.0); Mean Platelet Volume 9.5 fL (7.4-10.4); Nucleated Red Blood Cells % 0 % (-); Platelet Count 278 10^3/uL (130-400); Red Cell Dist. Width 13.5 % (11.5-14.5); White Blood Cell Count 7.2 10^3/uL (4.8-10.8)
[2024-07-29 17:37] LABS: Blood Urea Nitrogen 20 mg/dl (9-20); Calcium 8.9 mg/dl (8.4-10.2); Carbon Dioxide 23 mmol/L (22-30); Chloride 108 mmol/L (98-107); Glucose 122 mg/dl (70-99); Potassium 4.7 mmol/L (3.5-5.1); Sodium 140 mmol/L (135-145); eGFR > 60.00
== END ==
LOC: REG 12:13
PROVIDERS: ATTENDING PHYSICIAN Specialist; FAMILY PHYSICIAN Nurse Practitioner
DX: Z01.818 Encounter for other preprocedural examination (principal)
CPT/HCPCS: 36415; 80048; 85025; 93005

== ENCOUNTER → 2024-08-14 12:38 | Outpatient (REF) | payer MEDICARE, SELFPAY | LOC: HWRAD 12:38 | PROVIDERS: ATTENDING PHYSICIAN Specialist; FAMILY PHYSICIAN Internal Medicine | DX: M19.011 Primary osteoarthritis, right shoulder (principal) | CPT/HCPCS: 73200 ==

== ENCOUNTER → 2024-09-04 11:34 | Outpatient (REF) | payer MEDICARE, SELFPAY ==
[2024-09-04 16:40] LABS: Urine Albumin 2+ (Neg - Trace); Urine Bilirubin Negative (Negative); Urine Character Clear (Clear); Urine Color Yellow; Urine Glucose Negative (Negative); Urine Ketone Negative (Negative); Urine Leukocyte Negative (Negative); Urine Nitrite Negative (Negative); Urine Occult Blood 1+ (Negative); Urine Specific Gravity 1.025 (<1.030); Urine Urobilinogen Negative (Neg - 1+)
[2024-09-04 16:50] LABS: Urine Mucus Many; Urine Squamous Cell 0-2 /LPF (Few)
[2024-09-04 16:51] LABS: Urine Bacteria Moderate (Negative); Urine White Cell 0-2 /HPF (0-5)
== END ==
LOC: CLAB 11:34
PROVIDERS: ATTENDING PHYSICIAN Surgery; PRIMARYCARE PHYSICIAN Internal Medicine
DX: R39.9 Unspecified symptoms and signs involving the genitourinary system (principal)
CPT/HCPCS: 81003; 81015; 87086

== ENCOUNTER → 2024-11-14 14:48 | Outpatient (REF) | payer MEDICARE, SELFPAY | LOC: RAD 14:48 | PROVIDERS: ATTENDING PHYSICIAN Nurse Practitioner | DX: K40.90 Unilateral inguinal hernia, without obstruction or gangrene, not specified as recurrent (principal); R10.31 Right lower quadrant pain | CPT/HCPCS: 76870; 76882; 93976 ==

== ENCOUNTER → 2024-12-04 17:11 | Outpatient (REF) | payer MEDICARE, SELFPAY ==
[2024-12-04 18:22] LABS: Blood Urea Nitrogen 27 mg/dl (9-20); Calcium 9.3 mg/dl (8.4-10.2); Carbon Dioxide 28 mmol/L (22-30); Chloride 108 mmol/L (98-107); Glucose 83 mg/dl (70-99); Potassium 4.5 mmol/L (3.5-5.1); Sodium 141 mmol/L (135-145); eGFR > 60.00
== END ==
LOC: REG 17:11
PROVIDERS: ATTENDING PHYSICIAN Surgery; FAMILY PHYSICIAN Internal Medicine
DX: K40.90 Unilateral inguinal hernia, without obstruction or gangrene, not specified as recurrent (principal); Z01.812 Encounter for preprocedural laboratory examination
CPT/HCPCS: 36415; 80048

== ENCOUNTER → 2024-12-09 13:55 | Outpatient (REF) | payer MEDICARE, SELFPAY ==
[2024-12-14 14:39] LABS: HPV, High Risk Not Detected; HPV, High Risk Source Anal
== END ==
LOC: CLAB 13:55
PROVIDERS: ATTENDING PHYSICIAN Surgery
DX: Z72.51 High risk heterosexual behavior (principal)
CPT/HCPCS: 87624; 88112

== ENCOUNTER → 2024-12-17 14:15 | Outpatient (REF) | payer MEDICARE, SELFPAY | LOC: RAD 14:15 | PROVIDERS: ATTENDING PHYSICIAN Surgery; FAMILY PHYSICIAN Internal Medicine | DX: K40.90 Unilateral inguinal hernia, without obstruction or gangrene, not specified as recurrent (principal) | CPT/HCPCS: 74177; Q9967 ==

== ENCOUNTER 2024-12-18 06:18 | Day surgery (SDC) | payer MEDICARE, SELFPAY | END 2024-12-18 11:31 | disposition home or self-care (01) | LOC: GI 06:18 | PROVIDERS: ATTENDING PHYSICIAN Surgery | DX: Z12.11 Encounter for screening for malignant neoplasm of colon (principal); K62.5 Hemorrhage of anus and rectum; K64.8 Other hemorrhoids; K57.30 Diverticulosis of large intestine without perforation or abscess without bleeding; D12.0 Benign neoplasm of cecum | CPT/HCPCS: G0121; J1610 ==

== ENCOUNTER 2025-01-22 09:51 | Day surgery (SDC) | payer MEDICARE, SELFPAY ==
[2025-01-22 07:33] VITALS: BMI 30.1
[2025-01-22 07:35] VITALS: BP 169/85; BMI 30.1
[2025-01-22 09:53] VITALS: BP 156/78
[2025-01-22 10:10] VITALS: BP 140/99
[2025-01-22 10:15] VITALS: BP 159/81
== END 2025-01-22 10:45 | disposition home or self-care (01) ==
LOC: SDS 09:51
PROVIDERS: ATTENDING PHYSICIAN Internal Medicine Gastroenterology
DX: D12.0 Benign neoplasm of cecum (principal); D12.2 Benign neoplasm of ascending colon; D12.4 Benign neoplasm of descending colon; K57.30 Diverticulosis of large intestine without perforation or abscess without bleeding; K64.0 First degree hemorrhoids
CPT/HCPCS: 45390; 88305

== ENCOUNTER 2025-01-24 13:59 | Inpatient (IN) | payer MEDICARE, SELFPAY ==
[2025-01-24 12:07] VITALS: BP 149/71
--- NOTE | 2025-01-24 12:33 | ED.GENMED ---
History of Present Illness
General
Chief Complaint: Post Operative Problem(s)
Source: patient
Exam Limitations: none
Time Seen by Provider: 01/24/25 12:23
History of Present Illness
History of Present Illness:
79-year-old male, multiple polyps removed via colonoscopy 2 days ago. Started with a mild bright red and darker rectal bleeding 2 nights ago, the day of the procedure. Symptoms were worse yesterday. Somewhat improved today. Some mild
lightheadedness. No abdominal pain no fever no other complaints
Past History
Past History
ED Past Medical History: GERD and Other (BPH)
ED Past Surgical History: Orthopedic and Other (hernia repair, R arm melanoma removed)
Social History
Tobacco: Non-smoker
Alcohol: Occasional
Personal: Single
Living: alone
Employment: Employed
Review of Systems
Review of Systems
All Other Systems: Not applicable
Constitutional: Denies fever
ABD/GI: Denies abdominal pain
Phy Exam
Physical Exam
Physical Exam:
GENERAL: Alert and oriented in no apparent distress
EYE: Orbits normal.
NECK: Supple, no significant adenopathy.
ENT: Pharynx without erythema
CARDIAC: Regular rate and rhythm without any obvious murmurs.
LUNGS: Clear breath sounds,normal
ABDOMEN: Soft, without focal tenderness or distention. Small erythematous area near the umbilicus where a tick was removed. Clearly was embedded. Rectal exam with maroon stool. Moderate amount.
NEUROLOGICAL: Alert and oriented , grossly non-focal
SKIN: Warm and dry, no rash or lesion, no discoloration, skin intact.
MUSCULOSKELETAL: No edema,no deformity.Good color
PSYCH: Normal and appropriate interaction.
Course
Orders/Labs/Results
Orders:
Orders
01/24/25 12:24
IV Insert/Care/Rem.- Treatment PRN
01/24/25 12:41
Type+Screen Urgent
Complete Blood Count/With Diff Urgent
Comprehensive Metabolic Panel Urgent
PTT Urgent
Prothrombin Time Urgent
01/24/25 13:06
Doxycycline [Vibramycin] 200 mg PO NOW STA
01/24/25 13:36
Admit/Transfer Patient As Directed
Co-Sign Provider:
Level of Care: Inpatient admission
Assign to:: Medical/Surgical
Physician / Group: nubia orozco
Diagnosis: rectal bleeding s/p polypectomy
Reason for Hospitalization: rectal bleeding s/p polypectomy
Expected length of stay greater than two midnights?: Yes
ELOS- Estimated Length of Stay in days: 3
I certify the patient meets the requirements for IP care: Yes
Code Status As Directed
Resuscitation Status: Full Code
GASTROINTESTINAL CONSULT Routine
Consulting Provider: Ajay Curry
Was physician already notified: Yes
Reason for consult: rectal bleeding s/p polypectomy
01/24/25 13:38
PRN Pain Medication Management As Directed
May give lesser potent ordered pain med per pt: Yes
preference::
Protocol:: Medication orders for pain may be administered in a
manner that supports deferring to patient preference
when the pt is:
- Requesting an ordered lesser potent pain medication.
Least to most potent pain medications are defined
as: acetaminophen < NSAID < tramadol < opioids
(morphine, oxycodone, hydromorphone).
- Requesting a lesser dose of the same medication IF
ORDERED.
- Requesting a less intrusive route of administration
if both routes are prescribed by the provider (PO <
IV).
01/24/25 13:54
Ondansetron Injectable [Zofran] 4 mg IV NOW STA
01/24/25 13:55
Pantoprazole [Protonix IV] 40 mg IV NOW STA
01/24/25 Dinner
Clear Liquid
At Your Request: Full Participation
Does patient need a safe tray?: No
Clear Liquids: No red liquids
01/24/25 15:41
0.9% Sodium Chloride 1000 ml [Nss] 1,000 ml IV 60 mls/hr
01/24/25 15:41
Activity As Directed
Activity Level: As Tolerated
Pneumatic Compression Sleeves As Directed
Type: Knee high
Vital Signs As Directed
Frequency: Per unit guidelines
DX Deep Vein Thrombosis Video Routine
01/24/25 22:00
Finasteride [Proscar] 5 mg PO HS
01/25/25 06:00
Complete Blood Count/With Diff IN AM
Comprehensive Metabolic Panel IN AM
01/25/25 08:00
Pantoprazole [Protonix IV] 40 mg IV DAILY
01/26/25 06:00
Complete Blood Count/With Diff IN AM
Comprehensive Metabolic Panel IN AM
01/27/25 06:00
Complete Blood Count/With Diff IN AM
Comprehensive Metabolic Panel IN AM
Abnormal Lab Results
01/24/25
12:41
RBC 4.30 L 10^6/uL
(4.70-6.10)
MCHC 32.3 L g/dL
(33.0-37.0)
Chloride 109 H mmol/L
(98-107)
BUN 23 H mg/dl
(9-20)
Total Protein 5.9 L g/dl
(6.3-8.2)
01/24/25 12:41
01/24/25 12:41
Vital Signs
Initial and Last Documented VS:
Initial Vital Signs
Temp Pulse Resp Pulse Ox
98.5 F 82 18 98
01/24/25 12:03 01/24/25 12:03 01/24/25 12:03 01/24/25 12:03
Last Documented Vital Signs
Temp Pulse Resp BP Pulse Ox
97.9 F 71 17 152/84 99
01/24/25 15:45 01/24/25 15:45 01/24/25 15:45 01/24/25 15:45 01/24/25 15:45
MDM/Problems Addressed
Differential Diagnosis Includes:
Patient is clinically stable however patient of bleeding along with rectal exam this still shows a moderate amount of maroon blood warrants admission. Labs pending, type and screen pending. Will contact GI and hospitalist after hemoglobin is back.
Also patient had a tick removed.
*Pulse Oximetry
SaO2: 98
Oxygen Mode of Delivery: Room air
Patient hypoxic: no
*Critical Care Note
Total Time (30-74mins, 75-104mins- exclusive of procedures): Not Applicable
Data Reviewed
Review of Other/Old Records Reveals: Labs, Records and Operative Reports (Multiple polyps removed. Some clipped.)
Update Note
Update Note:
Patient clinically stable. Hemoglobin reasonable although somewhat of a drop from his last hemoglobin last year. Warrants inpatient monitoring. Will also give a dose of doxycycline for tick exposure.
ED Attending Note
-
Portions of this chart may have been created with voice recognition software.� Occasional wrong word or��sound alike� substitutions may have occurred due to the inherent limitations of voice recognition software.
Discharge Plan
Departure
Patient Disposition: Admit
Date of Disposition: 01/24/25
Time of Disposition: 13:07
Presentation/result/management discussed w/ accepting MD/DO: Hospitalist
Discharge Problem:
Gastrointestinal bleeding, Recent multiple polyp removal, Tick bite abdominal wall
Interventions
Interventions:
*Risk Screen - Suicide Last Done: 01/24/25 12:47
*General Assessment Last Done: 01/24/25 15:40
*Neglect/Abuse Screening Last Done: 01/24/25 12:47
*ED COVID-19 Vaccine History Last Done: 01/24/25 12:47
*ED Influenza Vaccine History Last Done: 01/24/25 12:47
*Nursing Disposition Last Done: 01/24/25 15:40
ED-Skin Assessment Last Done: 01/24/25 12:48
Discharge Date and Time
Discharge Date/Time: 01/24/25 15:43
[2025-01-24 12:53] LABS: Hematocrit 40.2 % (39.0-52.0); Hemoglobin 13.0 g/dL (13.0-18.0); Mean Corp Hgb Conc. 32.3 g/dL (33.0-37.0); Mean Corpuscular Volume 93.5 fL (80.0-94.0); Nucleated Red Blood Cells % 0 % (-); Platelet Count 271 10^3/uL (130-400); Red Cell Dist. Width 13.3 % (11.5-14.5)
[2025-01-24 13:00] VITALS: BP 145/83
[2025-01-24 13:05] LABS: INR 1.01; PT 13.6 Sec (11.4-14.6)
[2025-01-24 13:07] LABS: APTT 27.3 Sec (23.4-35.0)
--- NOTE | 2025-01-24 13:11 | HPS.HSE ---
Family Physician
-
Family Physician:
Chief Complaint
-
Rectal bleeding post polypectomy
History of Present Illness
79-year-old male status post multiple polypectomy via colonoscopy 2 days ago 01/22/2025 who reports having bright red to maroon rectal bleeding 2 nights ago the day of the procedure. He complains of approximately 10 episodes daily of liquid blood
with little flecks of stool starting the evening after his colonoscopy. He denies any abdominal discomfort. He reports symptoms were worse yesterday somewhat improved today. He also reports some mild lightheadedness. Patient denies any NSAID or
aspirin use. He denies fever, chills, chest pain, palpitations, cough, shortness of breath, abdominal pain, nausea, vomiting, urinary symptoms. He has past medical history of GERD, BPH, osteoarthritis, melanoma with removal from right arm.
Medical History
Past Medical History
Past Medical History: Reports Other (BPH, OA, GERD)
Past Surgical History: Reports Orthopedic (Left TSA 08/22) and Other (melanoma removed right forearm with graft 2007)
Additional Past Surgical History:
Right shoulder replacement
Social History
Tobacco: Non-smoker
Alcohol: Occasional (one drink only )
Drug: None
Personal:
Living: Alone (with dog Binta)
Employment: Employed ([employer])
Family History
Family History: Not pertinent and Other (No family history of colon cancer)
Allergies / Home Medications
Allergies reflects when Allergies were last updated in [employer].
Home Medications with original date entered in [employer]
Allergy/Medication List:
Allergies
Allergy/AdvReac Type Severity Reaction Status Date / Time
No Known Allergies Allergy Verified 01/22/25 07:24
Home Medications
omeprazole 20 mg capsule,delayed release 20 mg PO DAILYPRN PRN GERD 08/16/21
ascorbic acid (vitamin C) 500 mg tablet (Vitamin C) 500 mg PO DAILYPRN PRN supplement 10/23/23
ferrous sulfate 325 mg (65 mg iron) tablet 325 mg PO DAILYPRN PRN supplement 10/23/23
glucosamine sulf dipot chlr,msm,chond 550 mg-C 30 mg-glynn 1 mg capsule (Glucosamine Chondroitin) 1 cap PO DAILY Supplement 10/23/23
hsfewtea-fr-pxzpg 300 mcg-K 60 mcg-lycop 600 mcg-lutein 300 mcg tablet (Centrum Silver Men) 1 tab PO DAILY Supplement 10/23/23
finasteride 5 mg tablet 5 mg PO HS 01/22/25
Review of Systems
-
History Source: Patient
A 12 point ROS was completed and negative except as noted: Yes
Constitutional: Denies Fever, Fatigue or Chills
EENT: Denies Sore Throat or Runny Nose
Respiratory: Denies Cough or Trouble Breathing
Cardiac: Denies Chest Pain, Diaphoresis or Palpitations
Abdomen/GI: Reports Constipated and Bloody Stools (Bright red to maroon); Denies Abdominal Pain, Nausea, Vomiting or Diarrhea
: Denies Dysuria, Frequency, Flank Pain or Incontinence
Musculoskeletal: Denies Joint Pain or Edema
Skin: Denies Itching or Rash
Neurological: Denies Dizzy, Headache or Weakness
Endocrine: Reports No Symptoms
Hematologic/Lymphatic: Reports No Symptoms
Psych: Reports Calm
Physical Exam
Vital Signs
Vital Signs
Temp Pulse Resp BP Pulse Ox
98.5 F 82 18 149/71 98
01/24/25 12:03 01/24/25 12:03 01/24/25 12:03 01/24/25 12:07 01/24/25 12:35
Physical Exam
General: Conversant; No Pain, Fever or Chills
HEENT: NormoCephalic, Anicteric, Moist mucous membranes, PERRLA, [place] Conjunctivae and No Ptosis
Respiratory: Clear; No Wheezes, Rales or Rhonchi
Cardiac: S1/S2 and Regular Rhythm; No Murmur, Rub, Gallop or Peripheral Edema
GI: Soft, Non Tender, Non Distended, Normal Bowel Sounds and No Hepatosplenomegaly
Rectal: Maroon Stools
Musculoskeletal: No Clubbing, No Cyanosis and No Edema
Skin: Warm and Dry; No Rash
Neuro: AO x 3, No Motor Deficits, Nonfocal/grossly intact, Cranial Nerves Intact and No Sensory Deficits; No Slurred Speech, Facial Droop, Tremors or Sedated
Psych: Calm
Laboratory Results
-
01/24/25 12:41
Laboratory Results
PT 13.6 Sec (11.4-14.6) 01/24/25 12:41
INR 1.01 01/24/25 12:41
APTT 27.3 Sec (23.4-35.0) 01/24/25 12:41
Impression/Plan
-
Impression/plan:
Admit to [facility]
#Rectal bleeding status post multiple polypectomies via colonoscopy on 01/22/2025
Hgb 13�stable prior 15.08 July 2024
-Consult GI
-Clear liquid diet
-IV NSS
-IV PPI
Zofran prn nausea
-type and screen, blood consent obtained and scanned into chart
- Follow CBC
Colonoscopy 01/22/2025
- Hemorrhoids found on perianal exam.
- The examined portion of the ileum was normal.
- Stool in the sigmoid colon, in the descending colon and in the
transverse colon.
- One 35 mm polyp in the cecum. Resected and retrieved. Treated
with argon plasma coagulation (APC). Clips were placed.
- Mucosal resection was performed. Resection was complete, and
retrieval was complete.
- One 10 mm polyp at the ileocecal valve, removed with a cold
snare. Resected and retrieved. Treated with argon plasma
coagulation (APC).
- Two 3 to 5 mm polyps in the proximal ascending colon, removed
with a cold snare. Resected and retrieved.
- One 5 mm polyp in the descending colon, removed with a cold
snare. Resected and retrieved.
- Diverticulosis in the sigmoid colon and in the descending colon.
- Non-bleeding internal hemorrhoids.
#BPH
Continue finasteride
#GERD
Continue omeprazole or equivalent
#Osteoarthritis
DVT prophylaxis
SCDs
Full code
--- NOTE | 2025-01-24 13:14 | W.PN.UPDATE ---
Update Note
Progress Note Update
This note serves as an addendum to the H&P by collection coordinator Christofer Helton
HPI�
79M Non smoker, single, lives alone , HX BPH, GERD seen at ER: mild BRBPR
- s/p multiple polyps removed via colonoscopy 2 days ago on 01/22/25
- new onset pg mild bright red and darker rectal bleeding 2 nights ago, the day of the procedure.
- Symptoms were worse yesterday but somewhat improved today.
- POS mild lightheadedness.
- No abdominal pain no fever no other complaints
PHX; see above
Reviewed VS:
Temp Pulse Resp BP Pulse Ox
98.5 F 82 18 149/71 98
01/24/25 12:03 01/24/25 12:03 01/24/25 12:03 01/24/25 12:07 01/24/25 12:35
PE
Gen: NAD
HEENT: anicyeric
Neck: supple
Lungs: CTA
Cor: RRR
Abdomen:�Soft, without focal tenderness or distention.
Small erythematous area near the umbilicus where a tick was removed.
Clearly was embedded.
Rectal exam with maroon stool. Moderate amount.
SPECIAL PROCEDURES NURSE: AAAO3
MS: no edema
Relevant Data�
10/26/23 07/29/24 12/04/24
05:22 12:44 17:19
WBC 7.2
Hgb 12.6 L 15.7
MCV 91.6
Plt Count 278
BUN 27 H
Creatinine 0.8
eGFR > 60.00
Total Bilirubin
AST
ALT
Alkaline Phosphatase
01/24/25
12:41
WBC 7.6
Hgb 13.0
MCV 93.5
Plt Count 271
BUN Pending
Creatinine Pending
eGFR
Total Bilirubin Pending
AST Pending
ALT Pending
Alkaline Phosphatase Pending
ASSESSMENT & PLAN
Pending Rx reconciliation
Maroon colored stool acute LGIB palpably post polypectomy site blood oozing
- Associated ACBLA: Current Hgb 13.0... although last pre procedure Hgb 15.7
- Recent multiple polyps removed here 2 days ago
- clinically stable
- T & S , Blood consent
- Clear and IVF NS
- IV PPI daily
- GI consult
Known HX
HX BPH on Finasteride
GERD on Prilosec
DVT Px: SCD
Full code
IP MS
[2025-01-24 13:22] LABS: ALT (SGPT) 13 U/L (0-50); AST (SGOT) 18 U/L (17-59); Albumin 3.6 g/dl (3.5-5.0); Alkaline Phosphatase 71 U/L (38-126); Blood Urea Nitrogen 23 mg/dl (9-20); Calcium 8.8 mg/dl (8.4-10.2); Carbon Dioxide 28 mmol/L (22-30); Chloride 109 mmol/L (98-107); Glucose 92 mg/dl (70-99); Potassium 4.3 mmol/L (3.5-5.1); Sodium 136 mmol/L (135-145); Total Protein 5.9 g/dl (6.3-8.2); eGFR > 60.00
[2025-01-24] MEDS: VIBRAMYCIN 200 MG PO (13:31)
[2025-01-24 14:00] VITALS: BP 156/84
[2025-01-24] MEDS: ZOFRAN 4 MG IV (14:04)
[2025-01-24] MEDS: PROTONIX IV 40 MG IV (14:08)
[2025-01-24] MEDS: NSS (PRESERVATIVE FREE) 10 ML IV (14:44)
--- NOTE | 2025-01-24 14:59 | CON.GI ---
Addendum entered and electronically signed by Ajay Curry MD 01/24/25 16:30:
I saw and examined the patient.
The RESCUE BOAT OPERATOR or PA's note was reviewed and I agree with the note.
Comment: 79yo male presents to ER with dark bloody BM after colonoscopy for resection/EMR of large polyp 01/22/25 in cecum 3.5cm. That evening and the next day he passed dark bloody BMs. Denies syncope. He called office today and was told to go
to ER. Hgb 13. Denies further bleeding since arrival to floor. Also had abd pain at tick bite site and rec'd doxy in ER.
REC:
Likely post polypectomy bleed that is resolving
Trend Hgb
OK for clears
If stable overnight, advance diet and OK for d/c
Path on polyp was adenoma. Recommended rpt exam in 6 months
Original Note:
Consultation
-
Date/Time Consultation Requested: 01/24/25 1336
Date/Time Consultation Performed: 01/24/25 1445
Requesting Provider: AURE Jacobs
Performing Provider: Dr. Curry/AURE [place]
Reason for Consultation: GI Bleed
Medical History
Chief Complaint / HPI
Chief Complaint: rectal bleeding
History of Present Illness:
79-year-old male with past medical history of GERD, BPH, open reduction of small bowel intussusception as a child, cholecystitis status post cholecystectomy, osteoarthritis, melanoma status post excision (2007), colon polyps, initially diagnosed on
colonoscopy with Dr. Putnam on 12/18/[address] Howard for EMR for large cecal polyp and had colonoscopy performed on 01/22/2025 (further details will be below) discharge to home, the patient stated he ate and drink without any difficulty.
That night he had a bowel movement that had a 'little spot of blood within it. Over the next 12 hours he had urgency with liquid and gas with maroon/dark blood that was thick approximately 6 times over the evening. Most were a tablespoon of blood
and he had maybe 1 or 2 that was 1/4 cup of blood at most. On he states he had a lot of 'errands to run'. And he had approximately 4 times within 2 hours of urgency with almost fecal incontinence while he was out. This was again the dark
red/maroon blood. At home into the evening he went approximately 3 more times. He had no further rectal bleeding or blood overnight. He states this morning he had some brown stool with bright red blood on the tissue only. He denies any fevers,
chills, nausea, vomiting, dysphagia or odynophagia. No early satiety or unintended weight loss. No NSAIDs. He drinks 1 beer daily. He has had no signs of bleeding here.
Past Medical History
Past Medical History: Other (GERD, BPH, small bowel intussusception status post open reduction (child), cholecystitis status postcholecystectomy, osteoarthritis, melanoma status post excision, colon polyps)
Past Surgical History: Other (Open reduction small bowel intussusception, cholecystectomy, melanoma excision, colon polyp removal with EMR)
Social History
Tobacco: Non-Smoker
Alcohol: Daily (1 beer daily)
Drug: None
Personal: Partner
Living: With Family
Employment: Retired
Family History
Family History: Other (No family history of gastrointestinal malignancy or IBD)
Allergies / Home Medications
Allergy/AdvReac Type Severity Reaction Status Date / Time
No Known Allergies Allergy Verified 01/22/25 07:24
�Medication �Instructions �Recorded
omeprazole 20 mg capsule,delayed 20 mg PO QPM gred 08/16/21
release
ascorbic acid (vitamin C) 500 mg 500 mg PO DAILY Supplement 10/23/23
tablet (Vitamin C)
ferrous sulfate 325 mg (65 mg 325 mg PO DAILY Supplement 10/23/23
iron) tablet
glucosamine sulf dipot 1 cap PO DAILY Supplement 10/23/23
chlr,msm,chond 550 mg-C 30 mg-glynn
1 mg capsule (Glucosamine
Chondroitin)
finasteride 5 mg tablet 5 mg PO HS prostate 01/22/25
therapeutic multivitamin 1 tab PO DAILY Supplement 01/24/25
Review of Systems
-
All other systems: A 12 pt ROS was Negative except as stated above in HPI
Vital Signs
Temp Pulse Resp BP Pulse Ox
98.5 F 71 18 145/83 98
01/24/25 12:03 01/24/25 13:30 01/24/25 13:30 01/24/25 13:00 01/24/25 13:30
Physical Exam
Exam
General: No Apparent Distress
HEENT: Normocephalic
Respiratory: Clear
Cardiac: Regular Rhythm
GI: Soft, Non Tender, Non Distended and Normal Bowel Sounds
Rectal: Other (Rectal exam performed by ER provider with maroon stool)
Skin: Warm and Dry
Neuro: AO x 3
Psych: Calm
Results
WBC 7.6 10^3/uL (4.8-10.8) 01/24/25 12:41
Hgb 13.0 g/dL (13.0-18.0) 01/24/25 12:41
Hct 40.2 % (39.0-52.0) 01/24/25 12:41
MCV 93.5 fL (80.0-94.0) 01/24/25 12:41
Plt Count 271 10^3/uL (130-400) 01/24/25 12:41
Absolute Neuts (auto) 5.1 10^3/uL (1.4-6.5) 01/24/25 12:41
PT 13.6 Sec (11.4-14.6) 01/24/25 12:41
INR 1.01 01/24/25 12:41
APTT 27.3 Sec (23.4-35.0) 01/24/25 12:41
Sodium 136 mmol/L (135-145) 01/24/25 12:41
Potassium 4.3 mmol/L (3.5-5.1) 01/24/25 12:41
Chloride 109 mmol/L (98-107) H 01/24/25 12:41
Carbon Dioxide 28 mmol/L (22-30) 01/24/25 12:41
BUN 23 mg/dl (9-20) H 01/24/25 12:41
Creatinine 0.8 mg/dL (0.7-1.3) 01/24/25 12:41
Calcium 8.8 mg/dl (8.4-10.2) 01/24/25 12:41
Total Bilirubin 0.7 mg/dl (0.2-1.3) 01/24/25 12:41
AST 18 U/L (17-59) 01/24/25 12:41
ALT 13 U/L (0-50) 01/24/25 12:41
Alkaline Phosphatase 71 U/L (38-126) 01/24/25 12:41
Diagnostic Image Results:
None
Prior GI Procedures:
EGD: None
Colonoscopy: 01/22/2025 colonoscopy (Dr. Howard)
- Hemorrhoids found on perianal exam.
- The examined portion of the ileum was normal.
- Stool in the sigmoid colon, in the descending colon and in the
transverse colon.
- One 35 mm polyp in the cecum. Resected and retrieved. Treated
with argon plasma coagulation (APC). Clips were placed.
- Mucosal resection was performed. Resection was complete, and
retrieval was complete.
- One 10 mm polyp at the ileocecal valve, removed with a cold
snare. Resected and retrieved. Treated with argon plasma
coagulation (APC).
- Two 3 to 5 mm polyps in the proximal ascending colon, removed
with a cold snare. Resected and retrieved.
- One 5 mm polyp in the descending colon, removed with a cold
snare. Resected and retrieved.
- Diverticulosis in the sigmoid colon and in the descending colon.
- Non-bleeding internal hemorrhoids.
Pathology on all polyps tubular adenomas (reviewed with patient)
Colonoscopy 12/18/2024 (Dr. Putnam) Five 10 to 30 mm polyps in the cecum and at the ileocecal valve.
No specimens collected.
- Diverticulosis in the entire examined colon.
- Internal hemorrhoids.
Assessment / Plan
-
79-year-old male with past medical history of GERD, BPH, open reduction of small bowel intussusception as a child, cholecystitis status post cholecystectomy, osteoarthritis, melanoma status post excision (2007), colon polyps, initially diagnosed on
colonoscopy with Dr. Putnam on 12/18/[address] Howard for EMR for large cecal polyp and had colonoscopy performed on 01/22/2025. Patient had 35 mm polyp removed in cecum via EMR. Clips placed. APC performed. 10 mm polyp at the ileocecal
valve removed with cold snare. Treated with APC. Two 3 to 5 mm polyp proximal ascending colon removed with cold snare. 5 mm polyp descending colon removed with cold snare. Presents with onset of rectal bleeding approximately 12 hours after
procedure and lasted 36 hours. Patient has not had any blood per rectum since last night. States he had a brown bowel movement this morning however had blood upon wiping only. Small amount. Denies any chest pain, shortness of breath, abdominal
pain or lightheadedness. Currently hemoglobin 13.0. Prior hemoglobin was 15.08 July 2024 however prior hemoglobins in the past 12.6-15. Vital signs are stable.
Impression:
Rectal bleeding, most likely post polypectomy bleed. Patient also does have diverticulosis (sigmoid/descending colon)
History of GERD
Plan:
- Okay for clear liquid diet, no red
- Trend hemoglobin
- If with active bleeding would perform CTA
- Pantoprazole 40 mg daily
- Patient was told repeat colonoscopy in 6 months for post polyp surveillance.
- Further recommendations to be forthcoming
-
-
Thank you for consultation and allowing me to participate in the patient's care. Please call the recreation leader GI physician during the after hours with any questions or concerns.
[2025-01-24 15:45] VITALS: BP 152/84
[2025-01-24 15:46] VITALS: BMI 29.9
[2025-01-24] MEDS: NSS 1000 IV (17:34)
[2025-01-24] MEDS: PROSCAR 5 MG PO (21:49)
[2025-01-24 23:00] VITALS: BP 157/70
[2025-01-25 06:54] LABS: Hematocrit 37.4 % (39.0-52.0); Hemoglobin 12.4 g/dL (13.0-18.0); Mean Corp Hgb Conc. 33.2 g/dL (33.0-37.0); Mean Corpuscular Volume 89.5 fL (80.0-94.0); Nucleated Red Blood Cells % 0 % (-); Platelet Count 262 10^3/uL (130-400); Red Cell Dist. Width 13.2 % (11.5-14.5)
[2025-01-25 07:14] LABS: ALT (SGPT) 12 U/L (0-50); AST (SGOT) 17 U/L (17-59); Albumin 3.3 g/dl (3.5-5.0); Alkaline Phosphatase 68 U/L (38-126); Blood Urea Nitrogen 14 mg/dl (9-20); Calcium 8.6 mg/dl (8.4-10.2); Carbon Dioxide 27 mmol/L (22-30); Chloride 108 mmol/L (98-107); Estimated Creatinine Clearance 65 ml/min; Glucose 85 mg/dl (70-99); Potassium 4.4 mmol/L (3.5-5.1); Sodium 139 mmol/L (135-145); Total Protein 5.5 g/dl (6.3-8.2); eGFR > 60.00
[2025-01-25 08:04] VITALS: BP 148/73
[2025-01-25] MEDS: NSS (PRESERVATIVE FREE) 10 ML IV (08:44)
[2025-01-25] MEDS: PROTONIX IV 40 MG IV (08:44)
--- NOTE | 2025-01-25 10:08 | W.PN.HOSP.TC ---
Today's Communication/Plan
-
Hgb stable
Clear liquid diet
Assessment / Plan
Assessment / Plan
79-year-old male with a history of GERD, BPH, osteoarthritis, melanoma status post resection, status post multiple polypectomy via colonoscopy 2 days ago 01/22/2025 who reports having bright red to maroon rectal bleeding for 2 nights following the
procedure.
#Rectal bleeding
status post multiple polypectomies via colonoscopy on 01/22/2025
Hgb 12.9�stable prior 15.08 July 2024
type and screen, blood consent obtained and scanned into chart
Colonoscopy 01/22/2025
- Hemorrhoids found on perianal exam.
- Diverticulosis in the sigmoid colon and in the descending colon.
- Non-bleeding internal hemorrhoids.
Pathology on all polyps tubular adenomas (reviewed with patient)
-Consult GI, appreciate recs
-Clear liquid diet, no reds
-Zofran prn nausea
- Follow CBC
-Pantoprazole 40 mg daily
- Consider CTA for active bleed
-If stable overnight, advance diet and OK for d/c
#BPH
Continue finasteride
#GERD
Continue omeprazole or equivalent
DVT prophylaxis:
SCDs
CODE STATUS: Full code
Anticipated Discharge: Within 24 hours
Subjective/Interval History
-
Patient was seen at bedside. He reports 1 out of 10 abdominal pain. Went to stool yesterday which was maroon-colored. Has not had any stools this a.m. Otherwise reports no fevers chills shortness of breath nausea vomiting chest pain. Date of
Service: January 25, 2025
Objective Data
-
Labs:
Laboratory Results
01/25/25
06:02
WBC 6.8
Hgb 12.4 L
Hct 37.4 L
Plt Count 262
Sodium 139
Potassium 4.4
Chloride 108 H
Carbon Dioxide 27
BUN 14
Creatinine 0.9
Glucose 85
Calcium 8.6
Total Bilirubin 0.7
AST 17
ALT 12
Alkaline Phosphatase 68
Vital Signs:
Vital Signs
Temp Pulse Resp BP Pulse Ox
98.0 F 56 16 148/73 97
01/25/25 08:04 01/25/25 08:04 01/25/25 08:04 01/25/25 08:04 01/25/25 08:04
I&O
01/24/25 01/25/25 01/26/25
06:59 06:59 06:59
Intake Total 1200 / 1200
Output Total 925 / 925
Balance 275 / 275
Review of Systems
-
History Source: Patient
Constitutional: Denies Fever, Fatigue or Chills
EENT: Denies Sore Throat or Runny Nose
Respiratory: Denies Cough or Trouble Breathing
Cardiac: Denies Chest Pain or Palpitations
Abdomen/GI: Reports Abdominal Pain (04/12), Bloody Stools and Black Stools; Denies Nausea, Vomiting, Diarrhea or Constipated
Genitourinary: Reports No Symptoms; Denies Dysuria
Musculoskeletal: Reports No Symptoms
Skin: Denies Itching or Rash
Neuro: Denies Dizzy or Headache
Physical Exam
-
General: Well Developed, Well Nourished, No Apparent Distress and Comfortable; Negative Fever
HEENT: Normocephalic and Atraumatic
Respiratory: Clear to Auscultation and Non Labored Respirations; Negative Wheezes or Crackles
Cardiac: Regular Rhythm and S1/S2; Negative Murmur
GI: Soft, Nondistended, Normal Bowel Sounds and Tender (Mild suprapubic tenderness 04/12)
Musculoskeletal: No Clubbing and No Edema
Skin: Warm and Dry
Neuro: Awake, Alert and Oriented
--- NOTE | 2025-01-25 12:54 | W.PN.GI.CBS2 ---
Today's Communication / Plan
-
Hgb stable, minmal drop 13 to 12.4 overnight
Bleeding stopped
Tolerating low residue diet
OK for d/c from GI standpoint.
Assessment / Plan
-
Summary: 79-year-old male with past medical history of GERD, BPH, open reduction of small bowel intussusception as a child, cholecystitis status post cholecystectomy, osteoarthritis, melanoma status post excision (2007), colon polyps, initially
diagnosed on colonoscopy with Dr. Putnam on 12/18/[address] Howard for EMR for large cecal polyp and had colonoscopy performed on 01/22/2025. Patient had 35 mm polyp removed in cecum via EMR. Clips placed. APC performed. 10 mm polyp at
the ileocecal valve removed with cold snare. Treated with APC. Two 3 to 5 mm polyp proximal ascending colon removed with cold snare. 5 mm polyp descending colon removed with cold snare. Presents with onset of rectal bleeding approximately 12
hours after procedure and lasted 36 hours. Patient has not had any blood per rectum since last night. States he had a brown bowel movement this morning however had blood upon wiping only. Small amount. Denies any chest pain, shortness of breath,
abdominal pain or lightheadedness. Currently hemoglobin 13.0. Prior hemoglobin was 15.08 July 2024 however prior hemoglobins in the past 12.6-15. Vital signs are stable.
Impression:
Post polypectomy bleed.
Subjective
Subjective
Date of Service: January 25, 2025
Formed stool with some dark blood tinge, on TP with wiping
Objective
Data Reviewed
Laboratory Data:
Laboratory Results
01/25/25 06:02
01/25/25 06:02
Laboratory Results
PT 13.6 Sec (11.4-14.6) 01/24/25 12:41
INR 1.01 01/24/25 12:41
APTT 27.3 Sec (23.4-35.0) 01/24/25 12:41
Total Bilirubin 0.7 mg/dl (0.2-1.3) 01/25/25 06:02
AST 17 U/L (17-59) 01/25/25 06:02
ALT 12 U/L (0-50) 01/25/25 06:02
Alkaline Phosphatase 68 U/L (38-126) 01/25/25 06:02
Vital Signs and I&O:
Vital Signs
Temp Pulse Resp BP Pulse Ox
98.0 F 56 16 148/73 97
01/25/25 08:04 01/25/25 08:04 01/25/25 08:04 01/25/25 08:04 01/25/25 08:04
I&O
01/24/25 01/25/25 01/26/25
06:59 06:59 06:59
Intake Total 1200 / 1200
Output Total 925 / 925
Balance 275 / 275
Physical Exam
Physical Exam
GI: Soft, Non Distended and Non Tender
--- NOTE | 2025-01-25 13:42 | W.PN.UPDATE ---
Update Note
Progress Note Update
Seen and examined the patient. Agree with the plan of care formulated by the resident. See changes in my documentation
79-year-old male with bloody bowel movements after colonoscopy and resection of a large polyp on 01/22/2025.
Patient did not have any further active bleeding he had solid bowel movement with maroon stuff in the toilet paper when he wiped.
On examination awake alert oriented
Cardiovascular system S1-S2 appreciated
Chest clear to auscultation
Abdomen soft and nontender
# Post polypectomy bleeding
Follow hemoglobin-relatively stable
On clear liquid diet-advanced to low residue diet as bleeding has slowed down
Large polypectomy-EMR on 01/22/2025-adenoma
GI following
# Acute blood loss anemia secondary to GI bleed
# Enlarged prostate-continue finasteride
# GERD-continue PPI
# History of open reduction for small bowel intussusception as a child
# History of right arm melanoma with excision in 2008
# Daily alcohol use-1 beer-add thiamine
# Diverticulosis
# Arthritis/sciatica
# Ex-smoker
# DVT prophylaxis-SCDs
# Full code
Discussed with nursing
Discussed with GI
Part of this note was created using voice recognition system. Occasional wrong word or��sound alike� substitutions may have inadvertently occurred due to the inherent limitations of voice recognition software. If noted kindly bring it to my
attention for correction.
[2025-01-25] MEDS: VITAMIN B1 100 MG PO (14:11)
--- NOTE | 2025-01-25 14:22 | W.DCSUMMARY ---
Discharge Summary
Discharge Data
Date of Admission: 01/24/25
Date of Discharge: 01/25/25
-
Pending Results: No
Hospital Course
Discharging Physician :
Dr. Bergman
Dr. Boo
Disposition : Home
Primary care physician : Breanna Sandra
Principal Discharge diagnosis :
GI bleed status post polypectomy
Chronic Discharge diagnosis :
Acute blood loss anemia secondary to GI bleed
BPH
GERD
Diverticulosis
Sciatica
Hospital Course :
Mr. Spencer is a 79-year-old male with past medical history of GERD BPH osteoarthritis melanoma s/p resection who is status post multiple polypectomy via colonoscopy 01/22/2025 all polyps with benign pathology who reports having bright red to maroon
rectal bleeding the day of the procedure. He complains of approximately 10 episodes daily of liquid blood with little flecks of stool starting the evening after his colonoscopy and progress until 01/24 when he presented to the ED. Patient was
admitted for GI bleed and GI was consulted. His hemoglobin was measured at 13 which is stable from prior at 15.7, he was typed and screened in case of active bleeds. Patient was also put on clear liquid diet and given IV PPI. Patient remained
hemodynamically stable and on 01/20 5 GI saw patient and determined that he was stable with no maroon-colored stools hemoglobin at 12.4 and tolerated progression of his diet. On discharge patient was AFVSS.
Important imaging findings :
Procedure findings :
Discharge Plan
-
Patient Disposition: Home (Routine Discharge)
Discharge Diagnosis/Procedures: GI bleed s/p polypectomy
Acute blood loss anemia secondary to GI bleed
BPH
GERD
Diverticulosis
Sciatica
Condition: Good
Diet: Low Residue
Activity: As tolerated
Driving Restrictions: As prior to admission
Bathing Restrictions: None
Referrals:
Breanna Sandra CRNP [Family Provider, Internal Medicine] - in less than 1 week
Prescriptions:
New
thiamine mononitrate (vit B1) 100 mg Tablet
100 mg PO BID Qty: 60 0RF
Continued
omeprazole 20 MG capsule,delayed release(DR/EC)
20 mg PO QPM
ascorbic acid (vitamin C) [Vitamin C] 500 mg Tablet
500 mg PO DAILY
ferrous sulfate 325 mg (65 mg iron) Tablet
325 mg PO DAILY
Glucosamine Chondroitin 550-30-1 mg Capsule
1 cap PO DAILY
finasteride 5 mg Tablet
5 mg PO HS
therapeutic multivitamin Tablet
1 tab PO DAILY
Discharge Orders:
Discharge Patient (As Directed); Ordered 01/25/25
Ordered By: Elida Boo
Discharge Date and Time
Discharge Date/Time: 01/25/25 14:36
Print Language: LUXEMBOURG[place]
--- NOTE | 2025-01-25 14:33 | CM ---
Initial assessment completed with patient who lives alone in a 2 story plus basement home with B/B on 1st and 5 steps to enter. 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 No DME or in-home services. No HC-POA. Was in the [employer] but
no VA benefits. No psychiatric hospitalizations. PCP is [facility] with Breanna LOONEY. Pharmacy is [facility] in . Discharge POC: Anticipate home with no needs.
--- NOTE | 2025-01-25 14:40 | CM ---
Patient has been medically cleared for discharge to home with no additional skilled services. Admission IMM within the 48 hour Medicare time frame. Patient arranged for transport home.
== END 2025-01-25 14:36 | disposition home or self-care (01) | DRG 920 ==
LOC: 3 WEST ACU 13:59
PROVIDERS: Clinical Nurse Specialist Family Health; Student in an Organized Health Care Education/Training Program; ADMITTING PHYSICIAN Internal Medicine; ATTENDING PHYSICIAN Hospitalist; CONSULT PHYSICIAN Specialist; EMERGENCY PHYSICIAN Emergency Medicine; FAMILY PHYSICIAN Nurse Practitioner
DX: K91.840 Postprocedural hemorrhage of a digestive system organ or structure following a digestive system procedure (principal); D62 Acute posthemorrhagic anemia; K56.1 Intussusception; K92.2 Gastrointestinal hemorrhage, unspecified; Y83.8 Other surgical procedures as the cause of abnormal reaction of the patient, or of later complication, without mention of misadventure at the time of the procedure; K21.9 Gastro-esophageal reflux disease without esophagitis; N40.0 Benign prostatic hyperplasia without lower urinary tract symptoms; M19.90 Unspecified osteoarthritis, unspecified site; W57.XXXA Bitten or stung by nonvenomous insect and other nonvenomous arthropods, initial encounter; M54.30 Sciatica, unspecified side; K64.8 Other hemorrhoids; Z79.899 Other long term (current) drug therapy; Z86.0100 Personal history of colon polyps, unspecified; Z90.49 Acquired absence of other specified parts of digestive tract
CPT/HCPCS: 80053; 85025; 85610; 85730; 86850; 86900; 86901; 96374; 99284

== ENCOUNTER 2025-02-11 06:22 | Day surgery (SDC) | payer MEDICARE, SELFPAY ==
[2025-01-28 14:18] VITALS: BMI 31.2
[2025-02-11] VITALS (15 sets, daily range): BP systolic 147–180; BP diastolic 51–85; BMI 31.2
[2025-02-11] MEDS: TYLENOL 1000 MG PO (08:55)
[2025-02-11] MEDS: NORMOSOL-R/PLASMALYTE-A 1000 IV (08:55)
[2025-02-11] MEDS: HEPARIN 5000 UNITS SC (09:55)
--- NOTE | 2025-02-11 11:48 | OR.RPT ---
Operative Report
Operative Report
Primary Surgeon: Daya
Assisting: Rika CHACON
Pre-op Diagnosis: Right inguinal hernia, recurrent
Post-op Diagnosis: Same
Procedure Performed: Robot assisted laparoscopic repair recurrent right inguinal hernia
Anesthesia Type: GETA
Specimen / Cultures: None
Estimated Blood Loss: 10cc
Complications: None immediate
Operative Findings: Right indirect defect,, appendix within hernia defect; XL MID 3D max
Date of Surgery: 02/11/25
Indications: This 79M developed a symptomatic recurrent right inguinal hernia. Prior open repair in the 1950s. Robot assisted laparoscopic repair of the right groin hernia was elected.
Description of procedure:� The patient was taken to the operating room and positioned into supine position. The patient�s abdomen was prepped and draped in standard sterile fashion. A time-out was completed verifying correct patient, procedure,
site, positioning, and implants and special equipment prior to beginning this procedure.
A stab incision was made in the left upper quadrant, a Veress needle was inserted and proper position was confirmed by aspiration and saline drop test. Following this, pneumoperitoneum was created with insufflation of carbon dioxide to 12 mmHg. Then
a 8mm robotic trocar was inserted above and to the left of the umbilicus. A laparoscope was inserted and the area of initial trocar entry and Veress needle placement were both inspected and no injuries were found. Two 8mm trocars were then placed
lateral to the rectus sheath under direct visualization.
Both inguinal regions were inspected and the median umbilical ligament, medial umbilical ligament, and lateral umbilical fold were identified. Attention was turned to the right groin. The appendix and cecum were in the defect, these were gently
reduced without grasping them. The peritoneum was incised transversely above the defect and a flap was developed in the caudad direction. Daniel�s ligament was identified ultimately dissected to its junction with the iliac vein and the space of
Retzius was developed bluntly. The dissection was continued inferiorly to the iliopubic tract, with care taken to avoid injury to the femoral branch of the genitofemoral nerve and the lateral femoral cutaneous nerve. The cord structures were
parietalized.
The direct space was inspected and a hernia defect was not identified. The femoral space was inspected and a defect was not identified. The indirect space was inspected a defect was identified and reduced. The canal was inspected and no cord lipoma
was identified.
Extra large right MID 3D max mesh was passed through a trocar. The mesh was placed into the preperitoneal space and moved into position to lay flat and completely cover the direct, indirect, and femoral spaces with overlap at the midline. The mesh
was secured into place using 2-0 vicryl suture to Daniel�s ligament medially and laterally. Care was taken to avoid the inferolateral triangles containing the iliac vessels and genital nerves. The peritoneal flap was closed over the mesh and secured
with 2-0 monocryl stratafix suture in similar positions of safety. A 14g angiocath was used to decompress the preperitoneal space revealing good seal and all mesh in good position without folding or curling.
After ensuring adequate hemostasis, the trocars were removed and the pneumoperitoneum allowed to escape. The trocar incisions were closed at the skin level using 4-0 monocryl and topical skin adhesive. Marcaine 0.25% with epinephrine was infiltrated
into the skin around the port incisions. All counts were correct and the patient tolerated the procedure well and was taken to the postanesthesia care unit in stable condition.
The assistance of Rika CHACON was required due to the complexity of the procedure. During the procedure she assisted with retraction, resection, and closure of the wound.
[2025-02-11] MEDS: DILAUDID 0.5 MG IV ×3 (12:01→13:04)
== END 2025-02-11 16:00 | disposition home or self-care (01) ==
LOC: SDS 06:22
PROVIDERS: ATTENDING PHYSICIAN Surgery; FAMILY PHYSICIAN Nurse Practitioner
DX: K40.91 Unilateral inguinal hernia, without obstruction or gangrene, recurrent (principal)
CPT/HCPCS: 49651; 36415; 93005; C1781

== ENCOUNTER → 2025-03-03 11:07 | Outpatient (REF) | payer MEDICARE, SELFPAY | LOC: REG 11:07 | PROVIDERS: ATTENDING PHYSICIAN Hospitalist | DX: R05.3 Chronic cough (principal) | CPT/HCPCS: 71046 ==